=== PATIENT | female | born 1955 | race Caucasian/White ===

== ENCOUNTER 2019-04-11 04:31 | Emergency (ER) | payer BC ==
[2019-04-11] MEDS ORDERED: Acetaminophen 325 MG TAB ONE (04:51)
[2019-04-11 05:17] LABS: #Basophils 0.2 thou/uL (0.0-0.2); #Lymphocytes 0.4 thou/uL (1.20-3.40); #Monocytes 1.4 thou/uL (0.11-0.59); #Neutrophils 14.8 thou/uL (1.40-6.50); %Basophils 0.9 % (0.0-1.0); %Lymphocytes 2.1 % (21.0-51.0); %Monocytes 8.6 % (0.0-10.0); %Neutrophils 88.3 % (42.0-75.0); Hemoglobin 13.7 g/dL (12.0-16.0); Mean Corpuscular HGB CONC 30.2 g/dL (32.0-36.0); Mean Corpuscular Hemoglobin 31.1 pg (27.0-31.0); Mean Platelet Volume 9.5 fL (7.4-10.4); Platelet Count 205 thou/uL (130-400); RBC Distribution Width 12.3 % (11.5-14.5); Red Blood Cell (RBC) Count 4.39 mill/uL (4.20-5.40); White Blood Cell (WBC) Count 16.8 thou/uL (4.8-10.8)
[2019-04-11 05:29] LABS: ALT (SGPT) 26 U/L (8-55); AST (SGOT) 29 U/L (5-34); Albumin 3.7 g/dL (3.4-4.8); Alkaline Phosphatase 69 U/L (40-110); Anion Gap 14 mmol/L (10-20); BUN (Urea Nitrogen) 9 mg/dL (9.8-20.1); Bilirubin, Total 0.3 mg/dL (0.2-1.2); Calc. Creatinine Clearance 0 mL/min (70-130); Calcium 8.7 mg/dL (7.8-10.44); Carbon Dioxide 28 mmol/L (23-31); Chloride 94 mmol/L (98-107); Estimated GFR-MDRD Greater than 90; Glucose 116 mg/dL (80-115); Protein, Total 6.7 g/dL (6.0-8.3); Sodium 132 mmol/L (136-145)
[2019-04-11] MEDS ORDERED: Aspirin Chewable 81 MG TAB ONE (05:45)
[2019-04-11 05:48] LABS: CKMB 1.9 ng/mL (0-6.6)
[2019-04-11] MEDS ORDERED: Azithromycin 500 MG VIAL ONE (06:45)
--- NOTE | 2019-04-11 09:33 | RAD ---
AP PORTABLE CHEST: 04/11/2019 0501 HOURS FINDINGS: The AP portable film shows a normal sized heart. There is calcification in the aortic arch. There is some diffuse interstitial prominence, which could be either edema or fibrosis. I would note that the upper lobe vessels do not appear congested. No large effusions are seen. IMPRESSION: Mild interstitial prominence. See CT report to follow. POS: HOME
--- NOTE | 2019-04-11 09:42 | CT ---
PRELIMINARY REPORT/[facility]/AFTER HOURS PROCEDURE CTA CHEST WITH CONTRAST: 04/11/2019 0558 HOURS INDICATION: Shortness of breath. TECHNIQUE: During the rapid intravenous administration of 100 mL Isovue-370, helical CT of the chest was perform ed utilizing angiographic protocol. Multiplanar MIPs were generated and reviewed. Exam was performe d using one or more of the following dose reduction techniques: automated exposure control, adjustme nt of the mA and/or kV according to patient size, or use of iterative reconstruction technique. COMPARISON: None. FINDINGS: Respiratory motion artifact compromises exam quality. Pulmonary arterial system is well-opacified an d there is no identifiable intraluminal filling defect. Main pulmonary artery is dilated measuring a pproximately 3.3 cm. The heart is mildly enlarged with calcified atheroma seen throughout the coronar y arteries. Dense calcified atheroma is present within the aortic arch; there is no aneurysm or diss ection. Significant calcified atheroma within the proximal portion of the left subclavian artery is seen. A subclavian steal phenomenon cannot be excluded. Prominent right infrahilar lymph node measures 2.6 x 1.8 cm. Subcarinal and azygoesophageal nodes al so are prominent. There is no supraclavicular, subpectoral or axillary lymphadenopathy. Bronchial wall thickening is seen with irregular reticulonodular scattered opacities throughout both lungs. This process is most pronounced in the right lower lobe. There is no pleural effusion. Imaging continues into the abdomen to the level of the SMA takeoff. Visualized liver has a coarse pa renchymal pattern and is hypoattenuated consistent with fatty infiltration. Left adrenal 1.9 x 1.9 c m adenoma is seen. There is a large amount of extrathoracic and extra-abdominal adipose tissue. No acute osseous abnormalities apparent. IMPRESSION: 1. No pulmonary thromboembolism, as visualized. 2. Coronary and aortic atherosclerosis. 3. Cardiomegaly. Dilated main pulmonary artery suggests a component of pulmonary arterial hypertens ion. 4. Bronchial wall thickening with bilateral reticulonodular interstitial infiltrate. Conceivably th is is related to airway inflammation/ infection. CT follow-up is warranted. 5. Right infrahilar shotty lymphadenopathy. Conceivably this is reactive in nature. Neoplastic inf iltration cannot be excluded. 6. Hepatosteatosis. ELECTRONICALLY SIGNED BY: Diomedes Rucker DO Apr 11, 2019 6:37:35 AM [employer] This report is intended for review by the ordering physician only, in accordance of law. If you recei ve this report in error, please call [facility] at [phone]. FINAL REPORT CT ANGIO CHEST WITH CONTRAST: 04/11/2019 HISTORY/TECHNIQUE: A spiral CT of the chest is done after the injection of a bolus of IV contrast in this patient with c ough and shortness of breath. Axial slices were acquired followed by MIP reconstructions through the pulmonary arteries. FINDINGS: The degree of opacification of the pulmonary arteries is moderate so this slightly reduces the sensit ivity of this study to small emboli in middle to peripheral locations. [id number], there is no si gn of defects to suggest pulmonary emboli. There is no sign of aortic aneurysm or dissection. The helder n pulmonary artery is somewhat dilated at about 3.8 cm, suggesting there might be an element of pulmo nary hypertension. Calcification is seen in the coronary arteries, the aorta and potentially the orig in of the left subclavian artery. There is no sign of pericardial effusion. Adenopathy is seen in the mediastinum, particularly an enlarged right inferior hilar node that measur es about 2.7 cm in size. Subcarinal adenopathy is seen as well as some adenopathy in the azygous supe rior vena cava region. The lungs themselves show multiple reticulonodular opacities throughout. This could represent pneumon itis of various varieties or other inflammatory entities. There are no large effusions. Scans into the upper abdomen show diffuse fatty infiltration of the liver, which is mildly generous i n size. The spleen is normal in size. There is a 2.4 cm mass in the left adrenal gland. Its CT number s are fairly low, some even negative, indicating it is almost certainly an adenoma. IMPRESSION: 1. Moderate sensitivity study with no evidence of pulmonary embolism. 2. Some dilation of the pulmonary arteries, suggesting the possibility of pulmonary arterial hyperten giuseppe. 3. Arteriosclerotic change in the aorta and coronary arteries. 4. Mediastinal and hilar adenopathy is noted. This could be reactive to infection or could be due to other causes, including neoplastic. 5. Reticulonodular densities scattered throughout the lungs bilaterally. Infectious or inflammatory c auses would be most likely. Neoplastic causes are in the differential but less likely. 6. Diffuse fatty infiltration of the liver. 7. A 2.4 cm left adrenal mass, almost certainly a benign adenoma. Report in agreement with preliminary reading by [facility]. CODE QA POS: HOME
[2019-04-11] MEDS ORDERED: traMADol HCl 50 MG TAB ONE (09:44)
[2019-04-11] MEDS ORDERED: Iopamidol 370 76% 100 ML VIAL ONE (15:18)
== END 2019-04-11 07:52 | disposition short-term general hospital (02) ==
LOC: BURERS 04:31
DX: J18.9 Pneumonia, unspecified organism (principal); I10 Essential (primary) hypertension; J45.909 Unspecified asthma, uncomplicated; F17.210 Nicotine dependence, cigarettes, uncomplicated; Z79.899 Other long term (current) drug therapy
CPT/HCPCS: 36415; 71045; 71275; 80053; 82553; 83605; 83880; 84484; 85025; 87040; 87804; 93005; 96361; 96365; J0456; J7620; Q9967

== ENCOUNTER 2020-06-13 15:31 | Emergency (ER) | payer BC ==
[2020-06-13] MEDS ORDERED: methylPREDNISolone Sod Succ/PF 125 MG/2 ML VIAL ONE (15:50)
[2020-06-13] MEDS ORDERED: Magnesium 2 GM/50 ML BAG (IN WATER) ONE (15:50)
[2020-06-13 16:12] LABS: Hemoglobin 14.1 g/dL (12.0-16.0); Mean Corpuscular HGB CONC 31.7 g/dL (32.0-36.0); Mean Corpuscular Hemoglobin 32.6 pg (27.0-31.0); Mean Platelet Volume 9.5 fL (7.4-10.4); Platelet Count 198 thou/uL (130-400); Red Blood Cell (RBC) Count 4.34 mill/uL (4.20-5.40)
[2020-06-13 16:14] LABS: ALT (SGPT) 48 U/L (8-55); AST (SGOT) 77 U/L (5-34); Albumin 3.4 g/dL (3.4-4.8); Alkaline Phosphatase 53 U/L (40-110); Anion Gap 16 mmol/L (10-20); BUN (Urea Nitrogen) 28 mg/dL (9.8-20.1); Bilirubin, Total 0.4 mg/dL (0.2-1.2); Calc. Creatinine Clearance 0 mL/min (70-130); Calcium 8.7 mg/dL (7.8-10.44); Carbon Dioxide 28 mmol/L (23-31); Chloride 91 mmol/L (98-107); Globulin 3.1 g/dL (2.4-3.5); Glucose 92 mg/dL (80-115); Magnesium 2.1 mg/dL (1.6-2.6); Potassium 4.8 mmol/L (3.5-5.1); Protein, Total 6.5 g/dL (5.8-8.1); Sodium 130 mmol/L (136-145)
[2020-06-13] MEDS ORDERED: cefTRIAXone\\ROCEPHIN 1 GM VIAL ONE (16:39)
[2020-06-13] MEDS ORDERED: Azithromycin 500 MG VIAL ONE (16:39)
[2020-06-13] MEDS ORDERED: Heparin 5,000 UNITS/ML VIAL ONE (16:39)
[2020-06-13] MEDS ORDERED: Aspirin Chewable 81 MG TAB ONE (16:50)
[2020-06-13 17:17] LABS: Band 45 % (5-11); Lymphocytes 7 % (21-51); MDiff Complete? YES; Metamyelocyte 1 % (0-0); Monocytes 9 % (0-10); Neutrophil 37 % (42-75); Promyelocytes 1 % (0-0)
[2020-06-13 17:18] LABS: SARS-CoV-2 NAA Rapid Test Not Detected (NotDetected)
== END 2020-06-13 17:15 | disposition short-term general hospital (02) ==
LOC: BURERS 15:31
DX: J44.1 Chronic obstructive pulmonary disease with (acute) exacerbation (principal); J18.9 Pneumonia, unspecified organism; I21.4 Non-ST elevation (NSTEMI) myocardial infarction; R09.02 Hypoxemia; Z20.822 Contact with and (suspected) exposure to COVID-19; I10 Essential (primary) hypertension
CPT/HCPCS: 0240U; 36415; 71045; 80053; 82553; 83605; 83735; 83880; 84484; 85025; 87040; 87077; 87149; 87186; 93005; 96365; 96367; 96375; 99292; J0456; J0696; J1644; J2930; J3475; J7620